=== PATIENT | male | born 1985 | race African-American/Black ===

== ENCOUNTER 2017-12-14 00:15 | Emergency (ER) | payer SELFPAY ==
[2017-12-14 01:42] LABS: Absolute Monocytes 0.5 K/uL (0.1-1.3); Absolute Neutrophil 2.4 K/uL (1.8-8.0); Basophils % 1.5 % (0-1.3); Eosinophils % 2.4 % (0-4.4); Hematocrit 39.7 % (39.6-49.0); Lymphocytes % 39.4 % (15.3-44.8); MCH 29.4 pg (27.0-35.0); MCV 87.2 fL (80-100); MPV 8.7 fL (7.6-11.3); Monocytes % 9.5 % (3.3-12.3); RBC Red Blood Cell Count 4.55 M/uL (4.33-5.43)
[2017-12-14] MEDS ORDERED: NA CHLORIDE 0.9% 1,000 ML ONE (01:45)
[2017-12-14 01:54] LABS: Bicarbonate 27 mEq/L (21-31); Glucose Level 100 mg/dL (65-120); Potassium 3.5 mEq/L (3.6-5.0); Sodium Level 134 mEq/L (135-145)
[2017-12-14 01:55] LABS: BUN Blood Urea Nitrogen 9 mg/dL (6-20); Glomerular Filtration Rate > 90 mL/min (=/>90)
--- NOTE | 2017-12-14 02:22 | EDPHYS ---
Physician Documentation [facility] Name: Maximo Rodriguez Age: 32 yrs Sex: Male : 1985 Arrival Date: 12/14/2017 Time: 00:20 Bed 18 Private MD: ED Physician Wu Batres HPI: 12/14 02:12 This 32 yrs old Black Male presents to ER via Ambulatory with complaints of Diarrhea, pm1 Cough. 02:12 The patient presents to the emergency department with diarrhea. Onset: The pm1 symptoms/episode began/occurred 3 day(s) ago. Possible causes: sick contacts, by family, daughter, Diarrhea. The symptoms are aggravated by food , The symptoms are alleviated by nothing. Associated signs and symptoms: Pertinent negatives: dysuria, fever, vomiting. Severity of symptoms: in the emergency department the symptoms are unchanged. The patient has not recently seen a physician, and does not have an established primary care provider. Historical: - Allergies: 00:32 Amoxicillin; lp1 00:32 PENICILLINS; lp1 - Home Meds: 00:32 None [Active]; lp1 - PMHx: 00:32 None; lp1 - PSHx: 00:32 None; lp1 - Immunization history:: Adult Immunizations up to date, Flu vaccine is not up to date. - Social history:: Smoking status: Patient/guardian denies using tobacco. ROS: 02:12 Constitutional: Negative for fever, chills, and weight loss, Eyes: Negative for injury, pm1 pain, redness, and discharge, ENT: Negative for injury, pain, and discharge, Neck: Negative for injury, pain, and swelling, Cardiovascular: Negative for chest pain, palpitations, and edema, Respiratory: Negative for shortness of breath, cough, wheezing, and pleuritic chest pain. 02:12 Back: Negative for injury and pain, : Negative for injury, bleeding, discharge, and swelling, MS/Extremity: Negative for injury and deformity, Skin: Negative for injury, rash, and discoloration, Neuro: Negative for headache, weakness, numbness, tingling, and seizure. 02:12 Abdomen/GI: Positive for diarrhea, Negative for abdominal pain, nausea and vomiting. Exam: 02:12 Constitutional: This is a well developed, well nourished patient who is awake, alert, pm1 and in no acute distress. Head/Face: Normocephalic, atraumatic. Chest/axilla: Normal chest wall appearance and motion. Nontender with no deformity. No lesions are appreciated. Cardiovascular: Regular rate and rhythm with a normal S1 and S2. No gallops, murmurs, or rubs. No pulse deficits. Respiratory: Lungs have equal breath sounds bilaterally, clear to auscultation and percussion. No rales, rhonchi or wheezes noted. No increased work of breathing, no retractions or nasal flaring. Abdomen/GI: Soft, non-tender, with normal bowel sounds. No distension or tympany. No guarding or rebound. No evidence of tenderness throughout. Back: No spinal tenderness. No costovertebral tenderness. Full range of motion. Skin: Warm, dry with normal turgor. Normal color with no rashes, no lesions, and no evidence of cellulitis. MS/ Extremity: Pulses equal, no cyanosis. Neurovascular intact. Full, normal range of motion. 02:12 Neuro: Orientation: is normal, Motor: is normal, moves all fours. Vital Signs: 00:32 BP 130 / 79; Pulse 60; Resp 16; Temp 99.0(O); Pulse Ox 96% on R/A; Weight 90.72 kg; lp1 Height 5 ft. 8 in. (172.72 cm); Pain 0/10; 02:24 BP 127 / 76; Pulse 89; Resp 17 S; Pulse Ox 98% on R/A; Pain 0/10; jd3 00:32 Body Mass Index 30.41 (90.72 kg, 172.72 cm) lp1 MDM: 00:41 Patient medically screened. pm1 02:20 Data reviewed: vital signs. Data interpreted: Pulse oximetry: on room air is 96 %. pm1 Interpretation: normal. Counseling: I had a detailed discussion with the patient and/or guardian regarding: the historical points, exam findings, and any diagnostic results supporting the discharge/admit diagnosis, lab results, the need for outpatient follow up, to return to the emergency department if symptoms worsen or persist or if there are any questions or concerns that arise at home. 12/14 01:00 Order name: Flu jd3 12/14 01:00 Order name: Strep jd3 12/14 01:24 Order name: CBC with Diff pm1 12/14 01:24 Order name: BMP pm1 12/14 01:25 Order name: Influenza Screen (A ; Complete Time: 02:08 EDMS 12/14 01:25 Order name: Group A Streptococcus Rapid Sc; Complete Time: 02:08 EDMS 12/14 01:24 Order name: IV Saline Lock; Complete Time: 01:34 pm1 12/14 01:50 Order name: CBC with Automated Diff; Complete Time: 02:08 EDMS 12/14 01:54 Order name: Basic Metabolic Panel; Complete Time: 02:08 EDMS Administered Medications: 01:33 Drug: NS 0.9% 1000 ml Route: IV; Rate: 1000 ml; Site: right antecubital; jd3 02:27 Follow up: Response: No adverse reaction; IV Status: Completed infusion; IV Intake: jd3 1000ml Disposition: 12/14/17 02:20 Discharged to Home. Impression: Diarrhea, unspecified. - Condition is Stable. - Discharge Instructions: Food Choices to Help Relieve Diarrhea, Adult, Diarrhea, Viral Gastroenteritis. - Medication Reconciliation Form, Thank You Letter, Work release form form. - Follow up: Emergency Department; When: As needed; Reason: Worsening of condition. Follow up: Private Physician; When: 2 - 3 days; Reason: Recheck today's complaints, Continuance of care, Re-evaluation by your physician. - Problem is new. - Symptoms have improved. Addendum: 12/17/2017 06:21 Co-signature as Attending Physician, Wu Batres MD. g s Signatures: Dispatcher [employer] EDNC Jade Ellington, RN RN lp1 Coy Delacruz, AGRICULTURAL SALES REPRESENTATIVE AGRICULTURAL SALES REPRESENTATIVE pm1 Wu Batres MD MD Francisco Woodward, RN RN jd3
--- NOTE | 2017-12-14 02:22 | ER ---
Nurse's Notes [facility] Name: Maximo Rodriguez Age: 32 yrs Sex: Male : 1985 Arrival Date: 12/14/2017 Time: 00:20 Bed 18 Private MD: Diagnosis: Diarrhea, unspecified Presentation: 12/14 00:30 Presenting complaint: Patient states: States having Diarrhea x4 days, vomiting x1 day, lp1 generalized body aches. Transition of care: patient was not received from another setting of care. Onset of symptoms was December 14, 2017. Care prior to arrival: None. 00:30 Method Of Arrival: Ambulatory lp1 00:30 Acuity: MADELYN 3 lp1 Historical: - Allergies: 00:32 Amoxicillin; lp1 00:32 PENICILLINS; lp1 - Home Meds: 00:32 None [Active]; lp1 - PMHx: 00:32 None; lp1 - PSHx: 00:32 None; lp1 - Immunization history:: Adult Immunizations up to date, Flu vaccine is not up to date. - Social history:: Smoking status: Patient/guardian denies using tobacco. Screenin:33 Abuse screen: Denies threats or abuse. Denies injuries from another. Nutritional lp1 screening: No deficits noted. Tuberculosis screening: No symptoms or risk factors identified. Fall Risk None identified. Assessment: 00:33 General: Appears in no apparent distress. uncomfortable, Behavior is calm, cooperative, jd3 appropriate for age, Reports general body aches. Pain: Denies pain. Neuro: Level of Consciousness is awake, alert, obeys commands, Oriented to person, place, time, situation. Cardiovascular: Heart tones S1 S2 present Patient's skin is warm and dry. Respiratory: Airway is patent Respiratory effort is even, unlabored, Respiratory pattern is regular, symmetrical, Breath sounds with wheezes bilaterally. GI: Abdomen is flat, Bowel sounds hyperactive in right upper quadrant, left upper quadrant, right lower quadrant and left lower quadrant Abd is soft and non tender X 4 quads. Reports diarrhea, vomiting. : No signs and/or symptoms were reported regarding the genitourinary system. EENT: No signs and/or symptoms were reported regarding the EENT system. Derm: Skin is intact, Skin is dry, Skin is normal, Skin temperature is warm. Musculoskeletal: Circulation, motion, and sensation intact. Range of motion: intact in all extremities. 02:34 Reassessment: Patient appears in no apparent distress at this time. Patient and/or jd3 family updated on plan of care and expected duration. Pain level reassessed. Patient is alert, oriented x 3, equal unlabored respirations, skin warm/dry/pink. pt reported understanding of discharge instructions, even and steady gait noted upon discharge. Vital Signs: 00:32 BP 130 / 79; Pulse 60; Resp 16; Temp 99.0(O); Pulse Ox 96% on R/A; Weight 90.72 kg; lp1 Height 5 ft. 8 in. (172.72 cm); Pain 0/10; 02:24 BP 127 / 76; Pulse 89; Resp 17 S; Pulse Ox 98% on R/A; Pain 0/10; jd3 00:32 Body Mass Index 30.41 (90.72 kg, 172.72 cm) lp1 ED Course: 00:20 Patient arrived in ED. do 00:29 Coy Delacruz NP is PHCP. pm1 00:29 Wu Batres MD is Attending Physician. pm1 00:31 Triage completed. lp1 00:31 Arm band placed on left wrist. lp1 00:32 Francisco Woodward RN is Primary Nurse. jd3 00:34 Patient has correct armband on for positive identification. Bed in low position. Call jd3 light in reach. Side rails up X 1. Adult w/ patient. 01:30 Inserted saline lock: 20 gauge in right antecubital area, using aseptic technique. ar4 Blood collected. 02:25 No provider procedures requiring assistance completed. jd3 02:34 IV discontinued, intact, bleeding controlled, No redness/swelling at site. Pressure jd3 dressing applied. Administered Medications: 01:33 Drug: NS 0.9% 1000 ml Route: IV; Rate: 1000 ml; Site: right antecubital; jd3 02:27 Follow up: Response: No adverse reaction; IV Status: Completed infusion; IV Intake: jd3 1000ml Intake: 02:27 IV: 1000ml; Total: 1000ml. jd3 Outcome: 02:20 Discharge ordered by . pm1 02:26 Attestation : I concur with Giovana CARIAS. jd3 02:34 Discharged to home ambulatory. jd3 02:34 Condition: stable 02:34 Discharge instructions given to patient, Instructed on discharge instructions, follow up and referral plans. Demonstrated understanding of instructions, follow-up care. 02:36 Patient left the ED. ángel Signatures: Jade Ellington, JOSÉ MANUEL RN lp1 Yenny Mendoza Patrick, MULTINEEDLE SHIRRER MULTINEEDLE SHIRRER pm1 Francisco Woodward RN RN jd3 Giovaan Garcia
== END 2017-12-14 02:36 | disposition home or self-care (01) ==
LOC: ER 00:15
DX: R19.7 Diarrhea, unspecified (principal); Z88.0 Allergy status to penicillin
CPT/HCPCS: 36415; 80048; 85025; 87070; 87081; 87804; 96360; 99283; J7030